=== PATIENT | male | born 1950 | race Caucasian/White ===

== ENCOUNTER → 2017-06-02 | Outpatient (CLI) | payer OTHER, MEDICARE ==
[~2017-06-02] MED LIST: ALBU90OI INH; ALLEGRA ALLERG180 MG PO; ALLO300 PO; ALPR.5 PO; AMLO5 PO; ASPI81CH PO; ASPI81EC; ATOR20 PO; AZIT250 PO; BENA10 PO; BENA20 PO; BYSTOLIC; CLAR500 PO; ENOX40I SC; ESOM20; ESOM20 PO; FEXO60; FLUT.05NI; FOSI10; FURO40 PO; Flonase 0.05% N16 GM; GABA300 PO; GABA800 PO; HYDACE10B PO; HYDCHL25 PO; HYDMOR2 PO; KRILL OIL500 MG PO; LAMO100 PO; METF500 PO; METO25ER; NEBI10 PO; OMEP20ER; OXYACE5T PO; OXYC10ER PO; OXYC20ER PO; OXYC20L PO; OXYC5 PO; PARO10 PO; PARO30; POTA10T PO; PROM25 PO; ROFE25; SITA100T2 PO; TAMS.4ER; TAMS.4ER PO; TOLTERODINE TART4 MG PO; VENL75ER PO; Valium5 MG PO; Zithromax250 MG PO
[2017-06-07 09:16] LABS: Influenza A Negative (NEGATIVE)
[2017-06-07 09:17] LABS: Influenza B Negative (NEGATIVE)
== END ==
LOC: LAB SHORT 10:09
PROVIDERS: Emergency Medicine
DX: R05 Cough (principal)
CPT/HCPCS: 87804

== ENCOUNTER 2017-10-04 23:07 | Emergency (ER) | payer OTHER, MEDICARE ==
[~2017-10-04] VITALS: Ht 180.3 cm; Wt 138.8 kg
== END 2017-10-05 00:35 | disposition home or self-care (01) ==
LOC: ER 23:07
DX: G89.18 Other acute postprocedural pain (principal); M25.562 Pain in left knee; I10 Essential (primary) hypertension; Z87.891 Personal history of nicotine dependence
CPT/HCPCS: 96372; 99284; J1170; J1885

== ENCOUNTER 2019-04-29 09:59 | Day surgery (SDC) | payer OTHER, MEDICARE ==
[~2019-04-29] VITALS: Ht 180.3 cm; Wt 134.0 kg
[~2019-04-29 09:59] MED LIST changes: +JARDIANCE10 MG PO
--- NOTE | 2019-04-29 12:35 | NUR ---
Ambulatory in Day Surgery History, Chart, Medications and Allergies reviewed before start of procedure.Patient confirms NPO status and agrees with scheduled surgery. Patient states colon prep results clear. Patient States Post-Procedure ride home has been arranged WITH .
--- NOTE | 2019-04-29 13:30 | NUR ---
04/29/[address] HERE TO PROVIDE ANESTHESIA CARE, PLEASE SEE DETAILED RECORD. History, Chart, Medications and Allergies reviewed before start of procedure. PATIENT CONFIRMS NPO STATUS AND AGREES WITH SCHEDULED PROCEDURE. MONITOR INTACT WITH CONTINUOUS PULSE OXIMETRY AND INTERMITTENT BP. O2 VIA N/C INTACT THROUGHOUT SEDATION/PROCEDURE, AND NON-REBREATHER AT [address] ANTUNEZ.
== END 2019-04-29 14:35 | disposition home or self-care (01) ==
LOC: ORSCMMR 09:59 → ORD 12:00 → ORSCMMR 12:00
PROVIDERS: Surgery
PROC: 0DJD8ZZ Inspection of Lower Intestinal Tract, Via Natural or Artificial Opening Endoscopic (ICD-10-PCS; principal; 2019-04-29 12:00)
DX: Z12.11 Encounter for screening for malignant neoplasm of colon (principal); Z86.010 Personal history of colon polyps; G47.33 Obstructive sleep apnea (adult) (pediatric); K57.30 Diverticulosis of large intestine without perforation or abscess without bleeding; I10 Essential (primary) hypertension; Z87.891 Personal history of nicotine dependence; E11.40 Type 2 diabetes mellitus with diabetic neuropathy, unspecified; Z79.84 Long term (current) use of oral hypoglycemic drugs; Z79.82 Long term (current) use of aspirin; Z79.899 Other long term (current) drug therapy; E66.01 Morbid (severe) obesity due to excess calories; Z68.41 Body mass index [BMI] 40.0-44.9, adult; E78.5 Hyperlipidemia, unspecified
CPT/HCPCS: 82947; J2704; J7120

== ENCOUNTER 2020-04-19 00:31 | Day surgery (SDC) | payer OTHER, MEDICARE | END 2020-04-19 23:52 | disposition home or self-care (01) | LOC: WOUND 00:31 | DX: E11.621 Type 2 diabetes mellitus with foot ulcer (principal); E11.40 Type 2 diabetes mellitus with diabetic neuropathy, unspecified; E78.5 Hyperlipidemia, unspecified; L97.522 Non-pressure chronic ulcer of other part of left foot with fat layer exposed; Z88.2 Allergy status to sulfonamides; Z88.8 Allergy status to other drugs, medicaments and biological substances; Z88.5 Allergy status to narcotic agent; Z87.891 Personal history of nicotine dependence; Z79.84 Long term (current) use of oral hypoglycemic drugs | CPT/HCPCS: G0463 ==

== ENCOUNTER 2020-05-04 00:29 | Day surgery (SDC) | payer OTHER | END 2020-05-04 22:52 | disposition home or self-care (01) | LOC: WOUND 00:29 | DX: E11.621 Type 2 diabetes mellitus with foot ulcer (principal); L97.522 Non-pressure chronic ulcer of other part of left foot with fat layer exposed; L97.502 Non-pressure chronic ulcer of other part of unspecified foot with fat layer exposed; E11.52 Type 2 diabetes mellitus with diabetic peripheral angiopathy with gangrene; I96 Gangrene, not elsewhere classified; L84 Corns and callosities; E11.40 Type 2 diabetes mellitus with diabetic neuropathy, unspecified; I10 Essential (primary) hypertension; G47.30 Sleep apnea, unspecified; J45.909 Unspecified asthma, uncomplicated; M19.90 Unspecified osteoarthritis, unspecified site; M10.9 Gout, unspecified; Z88.2 Allergy status to sulfonamides; Z88.5 Allergy status to narcotic agent; Z79.84 Long term (current) use of oral hypoglycemic drugs; Z79.82 Long term (current) use of aspirin; Z79.899 Other long term (current) drug therapy ==

== ENCOUNTER 2020-05-11 00:41 | Day surgery (SDC) | payer OTHER ==
[~2020-05-11 00:41] MED LIST changes: -ALLO300 PO; -AMLO5 PO; -BENA20 PO; -Flonase 0.05% N16 GM; -HYDCHL25 PO; -METF500 PO; -NEBI10 PO; -POTA10T PO; -VENL75ER PO
[2020-07-09] MEDS ORDERED: ALLO300 PO (16:24)
[2020-07-09] MEDS ORDERED: NEBI10 PO (16:25)
[2020-07-09] MEDS ORDERED: METF500C PO (16:25)
[2020-07-09] MEDS ORDERED: Ventolin/Prove6.7 GM INH (16:26)
[2020-07-09] MEDS ORDERED: Venlafaxine HC150 MG PO (16:27)
[2020-07-09] MEDS ORDERED: TAMS.4ER PO (16:27)
[2020-07-09] MEDS ORDERED: POTA10T PO (16:27)
[2020-07-09] MEDS ORDERED: FLUT.05NI (16:28)
[2020-07-09] MEDS ORDERED: SITA100T2 PO (16:28)
[2020-07-09] MEDS ORDERED: AMLO5 PO (16:29)
[2020-07-09] MEDS ORDERED: OXYB5 PO (16:30)
[2020-07-09] MEDS ORDERED: ATOR20 PO (16:30)
[2020-07-09] MEDS ORDERED: BENA20 PO (16:30)
[2020-07-09] MEDS ORDERED: GABAPENTIN600 MG PO (16:31)
[2020-07-09] MEDS ORDERED: Aspir 8181 MG PO (16:32)
[2020-07-11] MEDS ORDERED: CEFD300 PO (13:56)
[2020-07-11] MEDS ORDERED: METR500 PO (13:57)
== END 2020-05-11 22:51 | disposition home or self-care (01) ==
LOC: WOUND 00:41
DX: E11.621 Type 2 diabetes mellitus with foot ulcer (principal); L97.519 Non-pressure chronic ulcer of other part of right foot with unspecified severity; L97.522 Non-pressure chronic ulcer of other part of left foot with fat layer exposed; L84 Corns and callosities; E11.40 Type 2 diabetes mellitus with diabetic neuropathy, unspecified; I10 Essential (primary) hypertension; J45.909 Unspecified asthma, uncomplicated; I20.9 Angina pectoris, unspecified; G47.30 Sleep apnea, unspecified; M19.90 Unspecified osteoarthritis, unspecified site; M10.9 Gout, unspecified; Z88.2 Allergy status to sulfonamides; Z88.8 Allergy status to other drugs, medicaments and biological substances; R93.6 Abnormal findings on diagnostic imaging of limbs
CPT/HCPCS: 93922; A9270; G0463

== ENCOUNTER 2020-05-19 00:42 | Day surgery (SDC) | payer OTHER ==
[2020-07-09] MEDS ORDERED: ALLO300 PO (16:24)
[2020-07-09] MEDS ORDERED: METF500C PO (16:25)
[2020-07-09] MEDS ORDERED: NEBI10 PO (16:25)
[2020-07-09] MEDS ORDERED: Ventolin/Prove6.7 GM INH (16:26)
[2020-07-09] MEDS ORDERED: POTA10T PO (16:27)
[2020-07-09] MEDS ORDERED: TAMS.4ER PO (16:27)
[2020-07-09] MEDS ORDERED: Venlafaxine HC150 MG PO (16:27)
[2020-07-09] MEDS ORDERED: SITA100T2 PO (16:28)
[2020-07-09] MEDS ORDERED: FLUT.05NI (16:28)
[2020-07-09] MEDS ORDERED: AMLO5 PO (16:29)
[2020-07-09] MEDS ORDERED: OXYB5 PO (16:30)
[2020-07-09] MEDS ORDERED: ATOR20 PO (16:30)
[2020-07-09] MEDS ORDERED: BENA20 PO (16:30)
[2020-07-09] MEDS ORDERED: GABAPENTIN600 MG PO (16:31)
[2020-07-09] MEDS ORDERED: Aspir 8181 MG PO (16:32)
[2020-07-11] MEDS ORDERED: CEFD300 PO (13:56)
[2020-07-11] MEDS ORDERED: METR500 PO (13:57)
== END 2020-05-19 23:13 | disposition home or self-care (01) ==
LOC: WOUND 00:42
DX: E11.621 Type 2 diabetes mellitus with foot ulcer (principal); L97.522 Non-pressure chronic ulcer of other part of left foot with fat layer exposed; E11.52 Type 2 diabetes mellitus with diabetic peripheral angiopathy with gangrene; I96 Gangrene, not elsewhere classified; E11.42 Type 2 diabetes mellitus with diabetic polyneuropathy; I10 Essential (primary) hypertension; J45.909 Unspecified asthma, uncomplicated; G47.30 Sleep apnea, unspecified; M19.90 Unspecified osteoarthritis, unspecified site; M10.9 Gout, unspecified; Z88.2 Allergy status to sulfonamides; Z88.5 Allergy status to narcotic agent; Z79.84 Long term (current) use of oral hypoglycemic drugs; Z79.51 Long term (current) use of inhaled steroids; Z79.82 Long term (current) use of aspirin; Z79.899 Other long term (current) drug therapy
CPT/HCPCS: A9270; G0463

== ENCOUNTER 2020-05-26 00:14 | Day surgery (SDC) | payer OTHER ==
[2020-07-09] MEDS ORDERED: ALLO300 PO (16:24)
[2020-07-09] MEDS ORDERED: METF500C PO (16:25)
[2020-07-09] MEDS ORDERED: NEBI10 PO (16:25)
[2020-07-09] MEDS ORDERED: Ventolin/Prove6.7 GM INH (16:26)
[2020-07-09] MEDS ORDERED: POTA10T PO (16:27)
[2020-07-09] MEDS ORDERED: Venlafaxine HC150 MG PO (16:27)
[2020-07-09] MEDS ORDERED: TAMS.4ER PO (16:27)
[2020-07-09] MEDS ORDERED: FLUT.05NI (16:28)
[2020-07-09] MEDS ORDERED: SITA100T2 PO (16:28)
[2020-07-09] MEDS ORDERED: AMLO5 PO (16:29)
[2020-07-09] MEDS ORDERED: BENA20 PO (16:30)
[2020-07-09] MEDS ORDERED: ATOR20 PO (16:30)
[2020-07-09] MEDS ORDERED: OXYB5 PO (16:30)
[2020-07-09] MEDS ORDERED: GABAPENTIN600 MG PO (16:31)
[2020-07-09] MEDS ORDERED: Aspir 8181 MG PO (16:32)
[2020-07-11] MEDS ORDERED: CEFD300 PO (13:56)
[2020-07-11] MEDS ORDERED: METR500 PO (13:57)
== END 2020-05-26 22:39 | disposition home or self-care (01) ==
LOC: WOUND 00:14
DX: E11.621 Type 2 diabetes mellitus with foot ulcer (principal); L97.522 Non-pressure chronic ulcer of other part of left foot with fat layer exposed
CPT/HCPCS: A9270

== ENCOUNTER 2020-06-02 00:14 | Day surgery (SDC) | payer OTHER ==
[2020-07-09] MEDS ORDERED: ALLO300 PO (16:24)
[2020-07-09] MEDS ORDERED: METF500C PO (16:25)
[2020-07-09] MEDS ORDERED: NEBI10 PO (16:25)
[2020-07-09] MEDS ORDERED: Ventolin/Prove6.7 GM INH (16:26)
[2020-07-09] MEDS ORDERED: POTA10T PO (16:27)
[2020-07-09] MEDS ORDERED: Venlafaxine HC150 MG PO (16:27)
[2020-07-09] MEDS ORDERED: TAMS.4ER PO (16:27)
[2020-07-09] MEDS ORDERED: SITA100T2 PO (16:28)
[2020-07-09] MEDS ORDERED: FLUT.05NI (16:28)
[2020-07-09] MEDS ORDERED: AMLO5 PO (16:29)
[2020-07-09] MEDS ORDERED: OXYB5 PO (16:30)
[2020-07-09] MEDS ORDERED: ATOR20 PO (16:30)
[2020-07-09] MEDS ORDERED: BENA20 PO (16:30)
[2020-07-09] MEDS ORDERED: GABAPENTIN600 MG PO (16:31)
[2020-07-09] MEDS ORDERED: Aspir 8181 MG PO (16:32)
[2020-07-11] MEDS ORDERED: CEFD300 PO (13:56)
[2020-07-11] MEDS ORDERED: METR500 PO (13:57)
== END 2020-06-02 23:45 | disposition home or self-care (01) ==
LOC: WOUND 00:14
DX: E11.621 Type 2 diabetes mellitus with foot ulcer (principal); L97.522 Non-pressure chronic ulcer of other part of left foot with fat layer exposed; L84 Corns and callosities; E11.40 Type 2 diabetes mellitus with diabetic neuropathy, unspecified; I73.9 Peripheral vascular disease, unspecified; I10 Essential (primary) hypertension; J45.909 Unspecified asthma, uncomplicated; M10.9 Gout, unspecified; M19.90 Unspecified osteoarthritis, unspecified site; G47.30 Sleep apnea, unspecified
CPT/HCPCS: A9270

== ENCOUNTER 2020-06-09 00:10 | Day surgery (SDC) | payer OTHER ==
[2020-07-09] MEDS ORDERED: ALLO300 PO (16:24)
[2020-07-09] MEDS ORDERED: NEBI10 PO (16:25)
[2020-07-09] MEDS ORDERED: METF500C PO (16:25)
[2020-07-09] MEDS ORDERED: Ventolin/Prove6.7 GM INH (16:26)
[2020-07-09] MEDS ORDERED: POTA10T PO (16:27)
[2020-07-09] MEDS ORDERED: TAMS.4ER PO (16:27)
[2020-07-09] MEDS ORDERED: Venlafaxine HC150 MG PO (16:27)
[2020-07-09] MEDS ORDERED: SITA100T2 PO (16:28)
[2020-07-09] MEDS ORDERED: FLUT.05NI (16:28)
[2020-07-09] MEDS ORDERED: AMLO5 PO (16:29)
[2020-07-09] MEDS ORDERED: BENA20 PO (16:30)
[2020-07-09] MEDS ORDERED: OXYB5 PO (16:30)
[2020-07-09] MEDS ORDERED: ATOR20 PO (16:30)
[2020-07-09] MEDS ORDERED: GABAPENTIN600 MG PO (16:31)
[2020-07-09] MEDS ORDERED: Aspir 8181 MG PO (16:32)
[2020-07-11] MEDS ORDERED: CEFD300 PO (13:56)
[2020-07-11] MEDS ORDERED: METR500 PO (13:57)
== END 2020-06-09 23:14 | disposition home or self-care (01) ==
LOC: WOUND 00:10
DX: E11.621 Type 2 diabetes mellitus with foot ulcer (principal); L97.522 Non-pressure chronic ulcer of other part of left foot with fat layer exposed; L84 Corns and callosities; E11.51 Type 2 diabetes mellitus with diabetic peripheral angiopathy without gangrene; J45.909 Unspecified asthma, uncomplicated; I10 Essential (primary) hypertension; I20.9 Angina pectoris, unspecified; G47.30 Sleep apnea, unspecified; M10.9 Gout, unspecified; M19.90 Unspecified osteoarthritis, unspecified site
CPT/HCPCS: A9270; G0463

== ENCOUNTER 2020-06-23 00:29 | Day surgery (SDC) | payer OTHER ==
[2020-07-09] MEDS ORDERED: ALLO300 PO (16:24)
[2020-07-09] MEDS ORDERED: NEBI10 PO (16:25)
[2020-07-09] MEDS ORDERED: METF500C PO (16:25)
[2020-07-09] MEDS ORDERED: Ventolin/Prove6.7 GM INH (16:26)
[2020-07-09] MEDS ORDERED: Venlafaxine HC150 MG PO (16:27)
[2020-07-09] MEDS ORDERED: POTA10T PO (16:27)
[2020-07-09] MEDS ORDERED: TAMS.4ER PO (16:27)
[2020-07-09] MEDS ORDERED: SITA100T2 PO (16:28)
[2020-07-09] MEDS ORDERED: FLUT.05NI (16:28)
[2020-07-09] MEDS ORDERED: AMLO5 PO (16:29)
[2020-07-09] MEDS ORDERED: OXYB5 PO (16:30)
[2020-07-09] MEDS ORDERED: ATOR20 PO (16:30)
[2020-07-09] MEDS ORDERED: BENA20 PO (16:30)
[2020-07-09] MEDS ORDERED: GABAPENTIN600 MG PO (16:31)
[2020-07-09] MEDS ORDERED: Aspir 8181 MG PO (16:32)
[2020-07-11] MEDS ORDERED: CEFD300 PO (13:56)
[2020-07-11] MEDS ORDERED: METR500 PO (13:57)
== END 2020-06-23 22:50 | disposition home or self-care (01) ==
LOC: WOUND 00:29
DX: E11.621 Type 2 diabetes mellitus with foot ulcer (principal); L84 Corns and callosities; L97.529 Non-pressure chronic ulcer of other part of left foot with unspecified severity
CPT/HCPCS: A9270

== ENCOUNTER 2020-06-26 17:41 | Emergency (ER) | payer OTHER ==
[~2020-06-26] VITALS: Ht 180.3 cm; Wt 133.8 kg
[2020-06-26] MEDS ORDERED: CEPH500 PO (18:14)
[2020-07-09] MEDS ORDERED: ALLO300 PO (16:24)
[2020-07-09] MEDS ORDERED: METF500C PO (16:25)
[2020-07-09] MEDS ORDERED: NEBI10 PO (16:25)
[2020-07-09] MEDS ORDERED: Ventolin/Prove6.7 GM INH (16:26)
[2020-07-09] MEDS ORDERED: Venlafaxine HC150 MG PO (16:27)
[2020-07-09] MEDS ORDERED: TAMS.4ER PO (16:27)
[2020-07-09] MEDS ORDERED: POTA10T PO (16:27)
[2020-07-09] MEDS ORDERED: FLUT.05NI (16:28)
[2020-07-09] MEDS ORDERED: SITA100T2 PO (16:28)
[2020-07-09] MEDS ORDERED: AMLO5 PO (16:29)
[2020-07-09] MEDS ORDERED: BENA20 PO (16:30)
[2020-07-09] MEDS ORDERED: OXYB5 PO (16:30)
[2020-07-09] MEDS ORDERED: ATOR20 PO (16:30)
[2020-07-09] MEDS ORDERED: GABAPENTIN600 MG PO (16:31)
[2020-07-09] MEDS ORDERED: Aspir 8181 MG PO (16:32)
[2020-07-11] MEDS ORDERED: CEFD300 PO (13:56)
[2020-07-11] MEDS ORDERED: METR500 PO (13:57)
== END 2020-06-26 18:35 | disposition home or self-care (01) ==
LOC: ER 17:41
DX: L03.116 Cellulitis of left lower limb (principal); E11.9 Type 2 diabetes mellitus without complications; I10 Essential (primary) hypertension; Z79.899 Other long term (current) drug therapy; Z79.84 Long term (current) use of oral hypoglycemic drugs; Z79.82 Long term (current) use of aspirin; Z88.2 Allergy status to sulfonamides; Z88.5 Allergy status to narcotic agent; Z87.891 Personal history of nicotine dependence
CPT/HCPCS: 99282; A9270

== ENCOUNTER → 2020-07-07 | Outpatient (CLI) | payer OTHER ==
[~2020-07-07] MED LIST changes: +ALLO300 PO; +AMLO5 PO; +Aspir 8181 MG PO; +BENA20 PO; +CEFD300 PO; +CEPH500 PO; +GABAPENTIN600 MG PO; +HYDCHL25 PO; +METF500C PO; +METR500 PO; +NEBI10 PO; +OXYB5 PO; +POTA10T PO; +Venlafaxine HC150 MG PO; +Ventolin/Prove6.7 GM INH
[2020-07-07 15:09] LABS: BASOPHILS ABSOLUTE AUTO 0.02 K/mm3 (0.00-0.23); BASOPHILS PERCENT AUTO 0 % (0-2); EOSINOPHILS ABSOLUTE AUTO 0.32 K/mm3 (0.00-0.68); EOSINOPHILS PERCENT AUTO 2 % (0-6); Hematocrit 49.9 % (37.0-53.0); Hemoglobin 17.5 g/dL (13.5-17.5); IMMATURE GRAN ABSOLUTE AUTO 0.04 K/mm3 (0.00-0.10); IMMATURE GRAN PERCENT AUTO 0 % (0-1); LYMPHOCYTES ABSOLUTE AUTO 1.48 K/mm3 (0.84-5.20); LYMPHOCYTES PERCENT AUTO 11 % (21-46); MONOCYTES ABSOLUTE AUTO 0.93 K/mm3 (0.16-1.47); MONOCYTES PERCENT AUTO 7 % (4-13); Mean Corpuscular HGB 28.7 pg (26.0-34.0); Mean Corpuscular HGB Conc 35.1 g/dL (31.5-36.5); Mean Corpuscular Volume 82 fL (80-100); Mean Platelet Volume 10.4 fL (9.1-12.4); NEUTROPHILS ABSOLUTE AUTO 10.31 K/mm3 (1.96-9.15); NEUTROPHILS PERCENT AUTO 79 % (41-73); Platelet Count 257 K/mm3 (150-400); RDW Coefficient Variation 14.1 % (11.7-14.2); RDW Standard Deviation 40.5 fL (35.1-46.3)
[2020-07-07 15:19] LABS: Albumin, Blood 4.1 g/dL (3.4-5.0); Albumin/Globulin Ratio 0.9 (0.8-1.8); Bilirubin, Total 0.6 mg/dL (0.1-1.0); Bun/Creatinine Ratio 23.9 (12.0-20.0); Calcium, Blood 9.2 mg/dL (8.5-10.1); Creatinine, Blood 1.59 mg/dL (0.60-1.20); Globulin, Blood 4.5 g/dL (2.2-4.0); Potassium, Blood 4.4 mmol/L (3.5-5.5); Total Protein, Blood 8.6 g/dL (6.4-8.2)
[2020-07-10 13:10] LABS: CRYPTOSPORIDIUM EIA Negative (Negative)
== END | disposition home or self-care (01) ==
LOC: LAB SHORT 15:05 → LAB 15:05
PROVIDERS: Chiropractor; Family Medicine
DX: E86.0 Dehydration (principal); N17.9 Acute kidney failure, unspecified; R19.7 Diarrhea, unspecified
CPT/HCPCS: 80053; 85025; 87015; 87045; 87046; 87328; 87329; 87899

== ENCOUNTER → 2020-07-08 | Outpatient (CLI) | payer OTHER ==
[2020-07-08 08:59] LABS: BASOPHILS ABSOLUTE AUTO 0.02 K/mm3 (0.00-0.23); BASOPHILS PERCENT AUTO 0 % (0-2); EOSINOPHILS ABSOLUTE AUTO 0.34 K/mm3 (0.00-0.68); EOSINOPHILS PERCENT AUTO 4 % (0-6); Hematocrit 51.5 % (37.0-53.0); Hemoglobin 18.2 g/dL (13.5-17.5); IMMATURE GRAN ABSOLUTE AUTO 0.02 K/mm3 (0.00-0.10); IMMATURE GRAN PERCENT AUTO 0 % (0-1); LYMPHOCYTES ABSOLUTE AUTO 2.08 K/mm3 (0.84-5.20); LYMPHOCYTES PERCENT AUTO 22 % (21-46); MONOCYTES ABSOLUTE AUTO 1.11 K/mm3 (0.16-1.47); MONOCYTES PERCENT AUTO 12 % (4-13); Mean Corpuscular HGB Conc 35.3 g/dL (31.5-36.5); Mean Corpuscular Volume 82 fL (80-100); Mean Platelet Volume 10.4 fL (9.1-12.4); NEUTROPHILS ABSOLUTE AUTO 6.01 K/mm3 (1.96-9.15); NEUTROPHILS PERCENT AUTO 63 % (41-73); Platelet Count 303 K/mm3 (150-400); RDW Coefficient Variation 14.6 % (11.7-14.2); RDW Standard Deviation 41.4 fL (35.1-46.3); Red Blood Cell Count 6.27 M/mm3 (4.30-5.90); White Blood Cell Count 9.58 K/mm3 (4.00-11.30)
[2020-07-08 09:07] LABS: Albumin, Blood 3.9 g/dL (3.4-5.0); Albumin/Globulin Ratio 0.9 (0.8-1.8); Bilirubin, Total 0.5 mg/dL (0.1-1.0); Bun/Creatinine Ratio 23.5 (12.0-20.0); Calcium, Blood 8.9 mg/dL (8.5-10.1); Creatinine, Blood 1.62 mg/dL (0.60-1.20); Globulin, Blood 4.4 g/dL (2.2-4.0); Potassium, Blood 4.1 mmol/L (3.5-5.5); Total Protein, Blood 8.3 g/dL (6.4-8.2)
[2020-07-08 10:35] LABS: Bun/Creatinine Ratio 24.7 (12.0-20.0); Creatinine, Blood 1.46 mg/dL (0.60-1.20); Potassium, Blood 4.1 mmol/L (3.5-5.5)
[2020-07-08 13:09] LABS: C DIFFICILE DNA Duplicate (Negative)
== END | disposition home or self-care (01) ==
LOC: LAB 08:47 → LAB SHORT 08:47
PROVIDERS: General Practice
DX: R11.10 Vomiting, unspecified (principal); R19.7 Diarrhea, unspecified
CPT/HCPCS: 80048; 80053; 82150; 85025

== ENCOUNTER 2020-07-09 11:03 | Inpatient (IN) | payer OTHER ==
[~2020-07-09] VITALS: Ht 180.3 cm; Wt 128.4 kg
[~2020-07-09 11:03] MED LIST changes: -ALLO300 PO; -AMLO5 PO; -Aspir 8181 MG PO; -BENA20 PO; -CEFD300 PO; -GABAPENTIN600 MG PO; -HYDCHL25 PO; -METF500C PO; -METR500 PO; -NEBI10 PO; -OXYB5 PO; -POTA10T PO; -Venlafaxine HC150 MG PO; -Ventolin/Prove6.7 GM INH
[2020-07-09 12:04] LABS: BASOPHILS ABSOLUTE AUTO 0.03 K/mm3 (0.00-0.23); BASOPHILS PERCENT AUTO 0 % (0-2); EOSINOPHILS ABSOLUTE AUTO 0.77 K/mm3 (0.00-0.68); EOSINOPHILS PERCENT AUTO 6 % (0-6); Hematocrit 48.7 % (37.0-53.0); IMMATURE GRAN ABSOLUTE AUTO 0.04 K/mm3 (0.00-0.10); IMMATURE GRAN PERCENT AUTO 0 % (0-1); LYMPHOCYTES ABSOLUTE AUTO 3.16 K/mm3 (0.84-5.20); LYMPHOCYTES PERCENT AUTO 26 % (21-46); MONOCYTES ABSOLUTE AUTO 1.22 K/mm3 (0.16-1.47); MONOCYTES PERCENT AUTO 10 % (4-13); Mean Corpuscular HGB 28.9 pg (26.0-34.0); Mean Corpuscular HGB Conc 34.9 g/dL (31.5-36.5); Mean Corpuscular Volume 83 fL (80-100); Mean Platelet Volume 9.6 fL (9.1-12.4); NEUTROPHILS ABSOLUTE AUTO 7.05 K/mm3 (1.96-9.15); NEUTROPHILS PERCENT AUTO 58 % (41-73); Platelet Count 274 K/mm3 (150-400); RDW Coefficient Variation 14.3 % (11.7-14.2); RDW Standard Deviation 42.8 fL (35.1-46.3); Red Blood Cell Count 5.88 M/mm3 (4.30-5.90); White Blood Cell Count 12.27 K/mm3 (4.00-11.30)
[2020-07-09 12:20] LABS: Albumin, Blood 3.4 g/dL (3.4-5.0); Albumin/Globulin Ratio 0.9 (0.8-1.8); Bilirubin, Total 0.4 mg/dL (0.1-1.0); Bun/Creatinine Ratio 22.9 (12.0-20.0); Calcium, Blood 8.1 mg/dL (8.5-10.1); Creatinine, Blood 1.53 mg/dL (0.60-1.20); Globulin, Blood 3.8 g/dL (2.2-4.0); Potassium, Blood 3.8 mmol/L (3.5-5.5); Total Protein, Blood 7.2 g/dL (6.4-8.2)
[2020-07-09 15:36] LABS: Influenza A, PCR NEGATIVE (NEGATIVE); Influenza B, PCR NEGATIVE (NEGATIVE); Resp Syncytial Virus, PCR NEGATIVE (NEGATIVE); SARS-Cov-2 (COVID-19) PCR, MMC NEGATIVE (NEGATIVE)
[2020-07-09] MEDS ORDERED: ALLO300 PO ×2 (16:24)
[2020-07-09] MEDS ORDERED: METF500C PO ×2 (16:25)
[2020-07-09] MEDS ORDERED: NEBI10 PO ×2 (16:25)
[2020-07-09] MEDS ORDERED: Ventolin/Prove6.7 GM INH ×2 (16:26)
[2020-07-09] MEDS ORDERED: TAMS.4ER PO ×2 (16:27)
[2020-07-09] MEDS ORDERED: POTA10T PO ×2 (16:27)
[2020-07-09] MEDS ORDERED: Venlafaxine HC150 MG PO ×2 (16:27)
[2020-07-09] MEDS ORDERED: SITA100T2 PO ×2 (16:28)
[2020-07-09] MEDS ORDERED: FLUT.05NI ×2 (16:28)
[2020-07-09] MEDS ORDERED: AMLO5 PO ×2 (16:29)
[2020-07-09] MEDS ORDERED: OXYB5 PO ×2 (16:30)
[2020-07-09] MEDS ORDERED: BENA20 PO ×2 (16:30)
[2020-07-09] MEDS ORDERED: ATOR20 PO ×2 (16:30)
[2020-07-09] MEDS ORDERED: GABAPENTIN600 MG PO ×2 (16:31)
[2020-07-09] MEDS ORDERED: Aspir 8181 MG PO ×2 (16:32)
[2020-07-09] MEDS ORDERED: HYDCHL25 PO (16:47)
--- NOTE | 2020-07-09 19:18 | NUR ---
PT ARRIVED AT 183, TUCKED IN, REPORT GIVEN TO NIGHT NURSE
[2020-07-09 21:08] LABS: C DIFFICILE DNA NEGATIVE (Negative)
[2020-07-10 06:22] LABS: BASOPHILS ABSOLUTE AUTO 0.03 K/mm3 (0.00-0.23); BASOPHILS PERCENT AUTO 0 % (0-2); EOSINOPHILS ABSOLUTE AUTO 1.17 K/mm3 (0.00-0.68); EOSINOPHILS PERCENT AUTO 10 % (0-6); Hematocrit 43.6 % (37.0-53.0); Hemoglobin 15.3 g/dL (13.5-17.5); IMMATURE GRAN ABSOLUTE AUTO 0.06 K/mm3 (0.00-0.10); IMMATURE GRAN PERCENT AUTO 1 % (0-1); LYMPHOCYTES PERCENT AUTO 25 % (21-46); MONOCYTES ABSOLUTE AUTO 0.97 K/mm3 (0.16-1.47); MONOCYTES PERCENT AUTO 8 % (4-13); Mean Corpuscular HGB 28.7 pg (26.0-34.0); Mean Corpuscular HGB Conc 35.1 g/dL (31.5-36.5); Mean Corpuscular Volume 82 fL (80-100); Mean Platelet Volume 9.7 fL (9.1-12.4); NEUTROPHILS PERCENT AUTO 56 % (41-73); Platelet Count 210 K/mm3 (150-400); RDW Coefficient Variation 14.2 % (11.7-14.2); RDW Standard Deviation 41.7 fL (35.1-46.3); Red Blood Cell Count 5.34 M/mm3 (4.30-5.90); White Blood Cell Count 11.73 K/mm3 (4.00-11.30)
--- NOTE | 2020-07-10 07:01 | NUR ---
SHIFT SUMMARY PT IS A 69 Y/O MALE, ADMITTED FOR DEHYDRATION R/T DIARRHEA. HE IS A&O X 4, SBA TO THE BATHROOM. PT DENIED ANY C/O PAIN, NAUSEA OR SOB, THOUGH IS STILL REPORTING "WATERY DIARRHEA". PT STATES HE IS FEELING "MUCH BETTER THAN I WAS" THIS AM. RECEIVING NS + 20 MEQ K+ @ 150 ML/HR, PLUS 1L BOLUS OF NS GIVEN AT HS. VITAL SIGNS REMAINED STABLE. TELE SHOWED NSR IN THE 70S. PT ON BIPAP AT [facility]. NO ACUTE CHANGES IN PT CONDITION NOTED DURING THE NIGHT. WILL CONTINUE TO MONITOR AND TREAT PER EMAR UNTIL HAND OFF TO DAY SHIFT RN.
[2020-07-10 07:15] LABS: Alanine Aminotransfer (ALT/SGP 24 U/L (12-78); Albumin, Blood 3.1 g/dL (3.4-5.0); Alk Phos 66 U/L (50-136); Anion Gap 9 mmol/L (6-16); Aspartate Aminotrans (AST/SGOT 10 U/L (12-37); Bilirubin, Total 0.5 mg/dL (0.1-1.0); Blood Urea Nitrogen 21 mg/dL (8-24); Bun/Creatinine Ratio 19.1 (12.0-20.0); CO2, Blood 19 mmol/L (21-32); Calcium, Blood 7.9 mg/dL (8.5-10.1); Chloride, Blood 113 mmol/L (98-108); Globulin, Blood 3.1 g/dL (2.2-4.0); Glomerular Filtration Rate >60 (60-); Glucose, Blood 148 mg/dL (70-99); Magnesium, Blood 1.3 mg/dL (1.6-2.4); Potassium, Blood 3.6 mmol/L (3.5-5.5); Sodium, Blood 141 mmol/L (136-145); Total Protein, Blood 6.2 g/dL (6.4-8.2)
--- NOTE | 2020-07-10 11:18 | NUR ---
PER DR WILKINSON, DC TELE AND CONTINUOUS PULSE OX DESPITE BEING ON CPAP HS PER PT REQUESST
--- NOTE | 2020-07-10 19:21 | NUR ---
SHIFT SUMMARY BENGT DENIED PAIN OR NAUSEA THIS SHIFT. ADVANCED TO FULL LIQUID AT [facility] AND DID WELL AND HAD ADA DIET FOR DINNER, EAGER TO GO HOME. HAD 3 BM THIS SHIFT, STATES THEY ARE GETTING MORE FORMED AND SLOWING DOWN SIGNIFICANTLY. VISITED. PT INDEP IN ROOM. DRESSED L GREAT TOE ULCER AFTER PT'S SHOWER. TELE AND CONT PULSE OX DC'D. MIVF DC'D, PT SL IV. CALL LIGHT IN REACH, REPORT GIVEN TO NIGHT NURSE
[2020-07-11 05:38] LABS: BASOPHILS ABSOLUTE AUTO 0.03 K/mm3 (0.00-0.23); BASOPHILS PERCENT AUTO 0 % (0-2); EOSINOPHILS PERCENT AUTO 13 % (0-6); Hematocrit 37.8 % (37.0-53.0); Hemoglobin 13.7 g/dL (13.5-17.5); IMMATURE GRAN ABSOLUTE AUTO 0.05 K/mm3 (0.00-0.10); IMMATURE GRAN PERCENT AUTO 1 % (0-1); LYMPHOCYTES ABSOLUTE AUTO 2.35 K/mm3 (0.84-5.20); LYMPHOCYTES PERCENT AUTO 29 % (21-46); MONOCYTES ABSOLUTE AUTO 0.63 K/mm3 (0.16-1.47); MONOCYTES PERCENT AUTO 8 % (4-13); Mean Corpuscular HGB Conc 36.2 g/dL (31.5-36.5); Mean Corpuscular Volume 80 fL (80-100); Mean Platelet Volume 9.4 fL (9.1-12.4); NEUTROPHILS ABSOLUTE AUTO 4.08 K/mm3 (1.96-9.15); NEUTROPHILS PERCENT AUTO 50 % (41-73); Platelet Count 158 K/mm3 (150-400); RDW Coefficient Variation 13.9 % (11.7-14.2); RDW Standard Deviation 40.2 fL (35.1-46.3); Red Blood Cell Count 4.72 M/mm3 (4.30-5.90); White Blood Cell Count 8.24 K/mm3 (4.00-11.30)
[2020-07-11 06:02] LABS: Alanine Aminotransfer (ALT/SGP 25 U/L (12-78); Albumin/Globulin Ratio 0.9 (0.8-1.8); Alk Phos 62 U/L (50-136); Anion Gap 8 mmol/L (6-16); Aspartate Aminotrans (AST/SGOT 17 U/L (12-37); Bilirubin, Total 0.5 mg/dL (0.1-1.0); Blood Urea Nitrogen 12 mg/dL (8-24); Bun/Creatinine Ratio 13.3 (12.0-20.0); CO2, Blood 21 mmol/L (21-32); Calcium, Blood 8.1 mg/dL (8.5-10.1); Chloride, Blood 112 mmol/L (98-108); Globulin, Blood 3.2 g/dL (2.2-4.0); Glomerular Filtration Rate >60 (60-); Glucose, Blood 153 mg/dL (70-99); Potassium, Blood 3.2 mmol/L (3.5-5.5); Sodium, Blood 141 mmol/L (136-145); Total Protein, Blood 6.2 g/dL (6.4-8.2)
--- NOTE | 2020-07-11 06:47 | NUR ---
SHIFT SUMMARY PT IS A 69 Y/O MALE, ADMITTED FOR DEHYDRATION R/T DIARRHEA. HE IS A&O X 4, INDEPENDENT IN THE ROOM. PT REPORTS THAT HE IS STILL HAVING EPISODES OF DIARRHEA, BUT THAT THEY ARE SLOWING DOWN, AND HE IS "FEELING 100% BETTER THAN I WAS". HE DID REPORT NECK PAIN AT HS, AND REQUESTED IBUPROFEN RATHER THAN TYLENOL "IT WORKS BETTER FOR ME". THE HOSPITALIST DR VARGAS NOTIFIED, AND IBUPROFEN ORDERED AND ADMINISTERED. NO C/O NAUSEA OR SOB. VITAL SIGNS STABLE. PT ON HIS HOME BIPAP WHILE SLEEPING. NO ACUTE CHANGES IN PT CONDITION NOTED DURING THE NIGHT. WILL CONTINUE TO MONITOR AND TREAT PER EMAR UNTIL HAND OFF TO DAY SHIFT RN.
[2020-07-11] MEDS ORDERED: CEFD300 PO ×2 (13:56)
[2020-07-11] MEDS ORDERED: METR500 PO ×2 (13:57)
== END 2020-07-11 14:27 | disposition home or self-care (01) | DRG 392 ==
LOC: ER 11:03 → MEDS 16:20
PROVIDERS: Emergency Medicine; Physician Assistant; ADMIT Internal Medicine
DX: K52.9 Noninfective gastroenteritis and colitis, unspecified (principal); N17.9 Acute kidney failure, unspecified; E87.2 Acidosis; Z20.822 Contact with and (suspected) exposure to COVID-19; I10 Essential (primary) hypertension; E66.9 Obesity, unspecified; K57.30 Diverticulosis of large intestine without perforation or abscess without bleeding; E86.0 Dehydration; E11.621 Type 2 diabetes mellitus with foot ulcer; L97.529 Non-pressure chronic ulcer of other part of left foot with unspecified severity; E78.5 Hyperlipidemia, unspecified; K76.0 Fatty (change of) liver, not elsewhere classified; E87.6 Hypokalemia; G47.33 Obstructive sleep apnea (adult) (pediatric); Z68.39 Body mass index [BMI] 39.0-39.9, adult; Z99.89 Dependence on other enabling machines and devices; Z79.2 Long term (current) use of antibiotics; Z87.891 Personal history of nicotine dependence; Z79.82 Long term (current) use of aspirin; Z79.84 Long term (current) use of oral hypoglycemic drugs; Z79.899 Other long term (current) drug therapy
CPT/HCPCS: 0241U; 36415; 74177; 80053; 82947; 83690; 83735; 85025; 87493; 94660; 94760; 94762; 96361; 96374; 99285-25; A9270; J0696; J1644; J2405; J3475; J3480; J7030; J7120; Q9967

== ENCOUNTER → 2020-07-09 | Outpatient (CLI) | payer OTHER ==
[2020-07-09 09:55] LABS: BASOPHILS ABSOLUTE AUTO 0.02 K/mm3 (0.00-0.23); BASOPHILS PERCENT AUTO 0 % (0-2); EOSINOPHILS ABSOLUTE AUTO 0.82 K/mm3 (0.00-0.68); EOSINOPHILS PERCENT AUTO 7 % (0-6); Hematocrit 47.8 % (37.0-53.0); Hemoglobin 16.7 g/dL (13.5-17.5); IMMATURE GRAN ABSOLUTE AUTO 0.05 K/mm3 (0.00-0.10); IMMATURE GRAN PERCENT AUTO 0 % (0-1); LYMPHOCYTES ABSOLUTE AUTO 2.81 K/mm3 (0.84-5.20); LYMPHOCYTES PERCENT AUTO 25 % (21-46); MONOCYTES ABSOLUTE AUTO 1.23 K/mm3 (0.16-1.47); MONOCYTES PERCENT AUTO 11 % (4-13); Mean Corpuscular HGB Conc 34.9 g/dL (31.5-36.5); Mean Corpuscular Volume 83 fL (80-100); NEUTROPHILS ABSOLUTE AUTO 6.47 K/mm3 (1.96-9.15); NEUTROPHILS PERCENT AUTO 57 % (41-73); Platelet Count 257 K/mm3 (150-400); RDW Coefficient Variation 14.6 % (11.7-14.2); RDW Standard Deviation 43.6 fL (35.1-46.3); Red Blood Cell Count 5.76 M/mm3 (4.30-5.90)
[2020-07-09 10:10] LABS: Albumin, Blood 3.3 g/dL (3.4-5.0); Albumin/Globulin Ratio 0.8 (0.8-1.8); Bilirubin, Total 0.4 mg/dL (0.1-1.0); Bun/Creatinine Ratio 21.6 (12.0-20.0); Calcium, Blood 7.9 mg/dL (8.5-10.1); Creatinine, Blood 1.76 mg/dL (0.60-1.20); Globulin, Blood 3.9 g/dL (2.2-4.0); Potassium, Blood 3.9 mmol/L (3.5-5.5); Total Protein, Blood 7.2 g/dL (6.4-8.2)
== END | disposition home or self-care (01) ==
LOC: LAB SHORT 09:50 → PLD 09:50
PROVIDERS: General Practice
DX: E13.65 Other specified diabetes mellitus with hyperglycemia (principal); E13.621 Other specified diabetes mellitus with foot ulcer; L97.509 Non-pressure chronic ulcer of other part of unspecified foot with unspecified severity
CPT/HCPCS: 80053; 85025; 87070; 87075; 87077; 87186; 87205

== ENCOUNTER 2020-07-14 00:44 | Day surgery (SDC) | payer OTHER ==
[~2020-07-14 00:44] MED LIST changes: +ALLO300 PO; +AMLO5 PO; +Aspir 8181 MG PO; +BENA20 PO; +CEFD300 PO; +GABAPENTIN600 MG PO; +HYDCHL25 PO; +METF500C PO; +METR500 PO; +NEBI10 PO; +OXYB5 PO; +POTA10T PO; +Venlafaxine HC150 MG PO; +Ventolin/Prove6.7 GM INH
== END 2020-07-14 22:46 | disposition home or self-care (01) ==
LOC: WOUND 00:44
DX: E11.621 Type 2 diabetes mellitus with foot ulcer (principal); L97.522 Non-pressure chronic ulcer of other part of left foot with fat layer exposed; L84 Corns and callosities; E11.40 Type 2 diabetes mellitus with diabetic neuropathy, unspecified; E11.51 Type 2 diabetes mellitus with diabetic peripheral angiopathy without gangrene; I10 Essential (primary) hypertension; J45.909 Unspecified asthma, uncomplicated; G47.30 Sleep apnea, unspecified; M19.90 Unspecified osteoarthritis, unspecified site; M10.9 Gout, unspecified; E78.5 Hyperlipidemia, unspecified; K21.9 Gastro-esophageal reflux disease without esophagitis; Z79.84 Long term (current) use of oral hypoglycemic drugs; Z87.891 Personal history of nicotine dependence; Z96.659 Presence of unspecified artificial knee joint; Z98.1 Arthrodesis status
CPT/HCPCS: A9270

== ENCOUNTER 2020-07-21 00:18 | Day surgery (SDC) | payer OTHER | END 2020-07-21 22:42 | disposition home or self-care (01) | LOC: WOUND 00:18 | DX: E11.621 Type 2 diabetes mellitus with foot ulcer (principal); L97.522 Non-pressure chronic ulcer of other part of left foot with fat layer exposed; L84 Corns and callosities; E11.40 Type 2 diabetes mellitus with diabetic neuropathy, unspecified; I10 Essential (primary) hypertension; J45.909 Unspecified asthma, uncomplicated; G47.30 Sleep apnea, unspecified; M19.90 Unspecified osteoarthritis, unspecified site; E78.5 Hyperlipidemia, unspecified; N40.0 Benign prostatic hyperplasia without lower urinary tract symptoms | CPT/HCPCS: 36415; 80053; 80061; 83036; 84153; 84154; 85025; A9270 ==

== ENCOUNTER 2020-08-04 00:18 | Day surgery (SDC) | payer OTHER | END 2020-08-04 22:47 | disposition home or self-care (01) | LOC: WOUND 00:18 | DX: E11.621 Type 2 diabetes mellitus with foot ulcer (principal); L97.522 Non-pressure chronic ulcer of other part of left foot with fat layer exposed; L84 Corns and callosities; I10 Essential (primary) hypertension; J45.909 Unspecified asthma, uncomplicated; G47.30 Sleep apnea, unspecified | CPT/HCPCS: A9270 ==

== ENCOUNTER 2020-08-18 00:23 | Day surgery (SDC) | payer OTHER | END 2020-08-18 22:49 | disposition home or self-care (01) | LOC: WOUND 00:23 | DX: E11.621 Type 2 diabetes mellitus with foot ulcer (principal); L97.522 Non-pressure chronic ulcer of other part of left foot with fat layer exposed; L84 Corns and callosities | CPT/HCPCS: 87070; 87075; 87077; 87186; 87205; A9270; G0463 ==

== ENCOUNTER 2020-09-03 02:07 | Day surgery (SDC) | payer OTHER | END 2020-09-03 23:12 | disposition home or self-care (01) | LOC: WOUND 02:07 | DX: E11.621 Type 2 diabetes mellitus with foot ulcer (principal); L97.522 Non-pressure chronic ulcer of other part of left foot with fat layer exposed; L03.031 Cellulitis of right toe; L84 Corns and callosities | CPT/HCPCS: A9270 ==

== ENCOUNTER 2020-09-09 00:31 | Day surgery (SDC) | payer OTHER | END 2020-09-09 22:53 | disposition home or self-care (01) | LOC: WOUND 00:31 | DX: E11.621 Type 2 diabetes mellitus with foot ulcer (principal); L97.522 Non-pressure chronic ulcer of other part of left foot with fat layer exposed; L03.031 Cellulitis of right toe; L84 Corns and callosities; E11.40 Type 2 diabetes mellitus with diabetic neuropathy, unspecified; E11.51 Type 2 diabetes mellitus with diabetic peripheral angiopathy without gangrene; I10 Essential (primary) hypertension; J45.909 Unspecified asthma, uncomplicated | CPT/HCPCS: A9270 ==

== ENCOUNTER 2020-09-15 16:27 | Day surgery (SDC) | payer OTHER | END 2020-09-15 22:52 | disposition home or self-care (01) | LOC: WOUND 16:27 | DX: E11.621 Type 2 diabetes mellitus with foot ulcer (principal); L97.522 Non-pressure chronic ulcer of other part of left foot with fat layer exposed; L03.031 Cellulitis of right toe; L84 Corns and callosities; I10 Essential (primary) hypertension; J45.909 Unspecified asthma, uncomplicated; E11.40 Type 2 diabetes mellitus with diabetic neuropathy, unspecified | CPT/HCPCS: A9270; G0463 ==

== ENCOUNTER 2020-10-11 10:55 | Day surgery (SDC) | payer OTHER ==
[~2020-10-11] VITALS: Ht 180.3 cm; Wt 137.4 kg
--- NOTE | 2020-10-11 13:00 | NUR ---
10/11/20 1300 Margarita Altman EPI 0.15MG MIXED INTO 30ML BUPIVACAINE 0.5% TO MAKE BUPIVACAINE 0.5% W/EPI 1:200,000
== END 2020-10-11 14:25 | disposition home or self-care (01) ==
LOC: ORSCSDS 10:55
PROVIDERS: Podiatrist Foot & Ankle Surgery
PROC: 0L8P0ZZ Division of Left Lower Leg Tendon, Open Approach (ICD-10-PCS; principal; 2020-10-11 12:30)
PROC: 0QBR0ZZ Excision of Left Toe Phalanx, Open Approach (ICD-10-PCS; principal; 2020-10-11 12:30)
DX: E11.40 Type 2 diabetes mellitus with diabetic neuropathy, unspecified (principal); E11.621 Type 2 diabetes mellitus with foot ulcer; L97.521 Non-pressure chronic ulcer of other part of left foot limited to breakdown of skin; M24.573 Contracture, unspecified ankle; I10 Essential (primary) hypertension; G47.33 Obstructive sleep apnea (adult) (pediatric); N18.9 Chronic kidney disease, unspecified; E66.01 Morbid (severe) obesity due to excess calories; Z68.41 Body mass index [BMI] 40.0-44.9, adult; Z79.84 Long term (current) use of oral hypoglycemic drugs; Z79.899 Other long term (current) drug therapy; Z79.82 Long term (current) use of aspirin
CPT/HCPCS: 82947; J0171; J0690; J1100; J2250; J2405; J2704; J3010; J7120

== ENCOUNTER → 2020-10-26 | Outpatient (CLI) | payer OTHER | END | disposition home or self-care (01) | LOC: LAB 09:38 → LAB SHORT 09:38 | DX: L82.1 Other seborrheic keratosis (principal) | CPT/HCPCS: 88305 ==

== ENCOUNTER → 2021-03-01 | Outpatient (CLI) | payer OTHER | LOC: LAB 10:28 → LAB SHORT 10:28 | DX: R30.0 Dysuria (principal); Z88.2 Allergy status to sulfonamides; Z88.5 Allergy status to narcotic agent | CPT/HCPCS: 87086 ==

== ENCOUNTER 2022-11-21 11:39 | Day surgery (SDC) | payer OTHER ==
[~2022-11-21] VITALS: Ht 180.3 cm; Wt 132.1 kg
[~2022-11-21 11:39] MED LIST changes: +CEFP200 PO; +HYDROCODONE-AC1 EA19 PO; +MECL25 PO
[2022-11-21] MEDS ORDERED: GEMTESA75 MG PO (12:12)
[2022-11-21] MEDS ORDERED: METFORMIN HCL500 M3 PO (12:12)
[2022-11-21] MEDS ORDERED: SEMGLEE (Y100 UNIT/2 SQ (12:12)
[2022-11-21] MEDS ORDERED: TRULICITY1.5 MG/0.1 SQ (12:12)
[2022-11-21] MEDS ORDERED: HYDCHL25 (12:13)
--- NOTE | 2022-11-21 12:21 | NUR ---
11/21/22 1221 Yamini Wilhelm 1 DROP OF TETRACAINE ADMINISTERED TO THE R EYE AT 1208, PLEDGET PLACED IN R EYE AT 1210
[2022-11-21 13:42] VITALS: BP 156/73
--- NOTE | 2022-11-21 13:53 | NUR ---
11/21/22 1353 Rivas Edwards IV OUT- NO ISSUES. WNL
== END 2022-11-21 14:03 | disposition home or self-care (01) ==
LOC: ORSCSDS 11:39
PROVIDERS: Ophthalmology
PROC: 08RJ3JZ Replacement of Right Lens with Synthetic Substitute, Percutaneous Approach (ICD-10-PCS; principal; 2022-11-21 13:00)
DX: E11.36 Type 2 diabetes mellitus with diabetic cataract (principal); H25.13 Age-related nuclear cataract, bilateral; J45.909 Unspecified asthma, uncomplicated; G47.33 Obstructive sleep apnea (adult) (pediatric); E66.01 Morbid (severe) obesity due to excess calories; Z68.41 Body mass index [BMI] 40.0-44.9, adult; Z87.891 Personal history of nicotine dependence; E78.5 Hyperlipidemia, unspecified; Z79.899 Other long term (current) drug therapy; Z79.84 Long term (current) use of oral hypoglycemic drugs; Z79.82 Long term (current) use of aspirin
CPT/HCPCS: 82947; J2001; J2250; J3010; J3301; J7040; V2632

== ENCOUNTER 2022-12-05 11:31 | Day surgery (SDC) | payer OTHER ==
[~2022-12-05] VITALS: Ht 180.3 cm; Wt 132.5 kg
[~2022-12-05 11:31] MED LIST changes: +GEMTESA75 MG PO; +HYDCHL25; +METFORMIN HCL500 M3 PO; +SEMGLEE (Y100 UNIT/2 SQ; +TRULICITY1.5 MG/0.1 SQ
--- NOTE | 2022-12-05 12:15 | NUR ---
12/05/22 1215 Brady Mcclain CALL LIGHT WITHIN REACH. TETRACAINE IN LEFT EYE AT 1158 AND PLEDGETT IN AT 1159
[2022-12-05 13:38] VITALS: BP 126/70
--- NOTE | 2022-12-05 14:06 | NUR ---
12/05/22 1406 Rivas Edwards IV REMOVED INTACT. SITE WNL.
== END 2022-12-05 13:53 | disposition home or self-care (01) ==
LOC: ORSCSDS 11:31
PROVIDERS: Ophthalmology
PROC: 08RK3JZ Replacement of Left Lens with Synthetic Substitute, Percutaneous Approach (ICD-10-PCS; principal; 2022-12-05 13:00)
DX: E11.36 Type 2 diabetes mellitus with diabetic cataract (principal); H25.12 Age-related nuclear cataract, left eye; H21.81 Floppy iris syndrome; I10 Essential (primary) hypertension; E78.5 Hyperlipidemia, unspecified; G47.33 Obstructive sleep apnea (adult) (pediatric); Z87.891 Personal history of nicotine dependence; J45.909 Unspecified asthma, uncomplicated; E66.01 Morbid (severe) obesity due to excess calories; Z68.41 Body mass index [BMI] 40.0-44.9, adult; Z79.84 Long term (current) use of oral hypoglycemic drugs; Z79.4 Long term (current) use of insulin; Z79.899 Other long term (current) drug therapy; Z79.82 Long term (current) use of aspirin
CPT/HCPCS: 82947; A9270; J2001; J2250; J2765; J3010; J3301; J7040; V2632

== ENCOUNTER 2024-07-07 22:38 | Emergency (ER) | payer OTHER ==
[~2024-07-07] VITALS: Ht 180.3 cm; Wt 127.9 kg
[2024-07-07 23:28] LABS: Source, Urine Clean Catch
[2024-07-07 23:31] LABS: Appearance, Urine Clear (Clear); Bilirubin, Urine Neg (Neg); Blood, Urine Neg (Neg); Color, Urine Yellow (P-Yellow); Glucose Qualitative, Urine 2+ (Neg); Ketones, Urine Neg (Neg); Leukocyte Esterase, Urine Neg (Neg); Nitrite, Urine Neg (Neg); Protein, Urine 2+ (Neg); Specific Gravity, Urine 1.015 (1.003-1.022); Urobilinogen, Urine NORM (Normal)
[2024-07-07 23:50] LABS: Red Blood Cells, Urine 0-2 /hpf (0-2)
[2024-07-07 23:51] LABS: Bacteria Mod /hpf; Squamous Epithelial Cells Many /hpf (Few)
[2024-07-08 00:13] LABS: BASOPHILS ABSOLUTE AUTO 0.02 K/mm3 (0.00-0.23); BASOPHILS PERCENT AUTO 0 % (0-2); EOSINOPHILS ABSOLUTE AUTO 0.19 K/mm3 (0.00-0.68); EOSINOPHILS PERCENT AUTO 2 % (0-6); Hematocrit 43.2 % (37.0-53.0); Hemoglobin 15.4 g/dL (13.5-17.5); IMMATURE GRAN ABSOLUTE AUTO 0.03 K/mm3 (0.00-0.10); IMMATURE GRAN PERCENT AUTO 0 % (0-1); LYMPHOCYTES ABSOLUTE AUTO 1.03 K/mm3 (0.84-5.20); LYMPHOCYTES PERCENT AUTO 9 % (21-46); MONOCYTES ABSOLUTE AUTO 0.87 K/mm3 (0.16-1.47); MONOCYTES PERCENT AUTO 8 % (4-13); Mean Corpuscular HGB 28.9 pg (26.0-34.0); Mean Corpuscular HGB Conc 35.6 g/dL (31.5-36.5); Mean Corpuscular Volume 81 fL (80-100); Mean Platelet Volume 10.2 fL (9.1-12.4); NEUTROPHILS ABSOLUTE AUTO 8.79 K/mm3 (1.96-9.15); NEUTROPHILS PERCENT AUTO 80 % (41-73); Platelet Count 182 K/mm3 (150-400); RDW Coefficient Variation 13.5 % (11.7-14.2); RDW Standard Deviation 39.3 fL (35.1-46.3); Red Blood Cell Count 5.32 M/mm3 (4.30-5.90); White Blood Cell Count 10.93 K/mm3 (4.00-11.30)
[2024-07-08] MEDS ORDERED: NS 1,000 ML IV SCH (00:20)
[2024-07-08 00:50] LABS: Albumin, Blood 3.9 g/dL (3.4-5.0); Albumin/Globulin Ratio 0.9 (0.8-1.8); Bun/Creatinine Ratio 26.7 (12.0-20.0); Calcium, Blood 8.7 mg/dL (8.5-10.1); Creatinine, Blood 1.01 mg/dL (0.60-1.20); Globulin, Blood 4.5 g/dL (2.2-4.0); Potassium, Blood 4.3 mmol/L (3.5-5.5); Total Protein, Blood 8.4 g/dL (6.4-8.2)
[2024-07-08 01:30] VITALS: BP 137/62
[2024-07-08] MEDS ORDERED: Cephalexin Monohydrate 500 MG Cap PO ONE (02:30)
[2024-07-08] MEDS ORDERED: CEFP200 PO (02:50)
== END 2024-07-08 02:52 | disposition home or self-care (01) ==
LOC: ER 22:38
PROVIDERS: Emergency Medicine; Physician Assistant
DX: E86.0 Dehydration (principal); N39.0 Urinary tract infection, site not specified; I10 Essential (primary) hypertension; E11.9 Type 2 diabetes mellitus without complications; G47.33 Obstructive sleep apnea (adult) (pediatric); R19.7 Diarrhea, unspecified; Z87.891 Personal history of nicotine dependence; Z79.82 Long term (current) use of aspirin; Z79.51 Long term (current) use of inhaled steroids; Z79.899 Other long term (current) drug therapy
CPT/HCPCS: 51798; 70450; 80053; 81001; 83690; 85025; 99284-25; A9270; J7030

== ENCOUNTER → 2024-07-07 | Outpatient (CLI) | payer OTHER ==
[~2024-07-07] MED LIST changes: +Oxybutynin Chlo10 MG PO; +Tessalon200 MG PO
[2024-07-07 13:15] LABS: BASOPHILS ABSOLUTE AUTO 0.01 K/mm3 (0.00-0.23); BASOPHILS PERCENT AUTO 0 % (0-2); EOSINOPHILS ABSOLUTE AUTO 0.22 K/mm3 (0.00-0.68); EOSINOPHILS PERCENT AUTO 2 % (0-6); Hematocrit 46.2 % (37.0-53.0); IMMATURE GRAN ABSOLUTE AUTO 0.03 K/mm3 (0.00-0.10); IMMATURE GRAN PERCENT AUTO 0 % (0-1); LYMPHOCYTES ABSOLUTE AUTO 1.45 K/mm3 (0.84-5.20); LYMPHOCYTES PERCENT AUTO 14 % (21-46); MONOCYTES PERCENT AUTO 5 % (4-13); Mean Corpuscular HGB 28.9 pg (26.0-34.0); Mean Corpuscular HGB Conc 34.6 g/dL (31.5-36.5); Mean Corpuscular Volume 83 fL (80-100); Mean Platelet Volume 10.5 fL (9.1-12.4); NEUTROPHILS ABSOLUTE AUTO 8.01 K/mm3 (1.96-9.15); NEUTROPHILS PERCENT AUTO 78 % (41-73); Platelet Count 200 K/mm3 (150-400); RDW Coefficient Variation 13.5 % (11.7-14.2); RDW Standard Deviation 40.8 fL (35.1-46.3); Red Blood Cell Count 5.54 M/mm3 (4.30-5.90); White Blood Cell Count 10.22 K/mm3 (4.00-11.30)
[2024-07-07 13:32] LABS: Albumin, Blood 4.2 g/dL (3.4-5.0); Albumin/Globulin Ratio 0.9 (0.8-1.8); Bilirubin, Total 0.8 mg/dL (0.1-1.0); Bun/Creatinine Ratio 20.9 (12.0-20.0); Calcium, Blood 9.7 mg/dL (8.5-10.1); Creatinine, Blood 1.53 mg/dL (0.60-1.20); Globulin, Blood 4.9 g/dL (2.2-4.0); Potassium, Blood 4.6 mmol/L (3.5-5.5); Total Protein, Blood 9.1 g/dL (6.4-8.2)
== END ==
LOC: LAB 13:09 → LAB SHORT 13:09
PROVIDERS: Physician Assistant
DX: R19.7 Diarrhea, unspecified (principal)
CPT/HCPCS: 80053; 83690; 85025

== ENCOUNTER → 2024-11-17 | Outpatient (CLI) | payer OTHER ==
[2024-11-17 18:46] LABS: Creatinine, Urine Random 82.7 mg/dL (27.00-270.00); Microalb/Creat Ratio UR, Rand 14.148 mg/g (0.000-30.000); Microalbumin, Random Urine 11.7 mg/L (0.000-20.000)
== END ==
LOC: LAB SHORT 12:00 → LAB 12:00
PROVIDERS: Nurse Practitioner Family
DX: E11.65 Type 2 diabetes mellitus with hyperglycemia (principal)
CPT/HCPCS: 82043; 82570

== ENCOUNTER 2024-12-19 16:43 | Emergency (ER) | payer OTHER ==
[~2024-12-19] VITALS: Ht 180.3 cm; Wt 127.0 kg
[2024-12-19 17:19] LABS: BASOPHILS ABSOLUTE AUTO 0.05 K/mm3 (0.00-0.23); BASOPHILS PERCENT AUTO 0 % (0-2); EOSINOPHILS ABSOLUTE AUTO 0.23 K/mm3 (0.00-0.68); EOSINOPHILS PERCENT AUTO 2 % (0-6); Hematocrit 41.7 % (37.0-53.0); Hemoglobin 14.6 g/dL (13.5-17.5); IMMATURE GRAN ABSOLUTE AUTO 0.04 K/mm3 (0.00-0.10); IMMATURE GRAN PERCENT AUTO 0 % (0-1); LYMPHOCYTES ABSOLUTE AUTO 0.71 K/mm3 (0.84-5.20); LYMPHOCYTES PERCENT AUTO 5 % (21-46); MONOCYTES ABSOLUTE AUTO 0.68 K/mm3 (0.16-1.47); MONOCYTES PERCENT AUTO 5 % (4-13); Mean Corpuscular HGB Conc 35.0 g/dL (31.5-36.5); Mean Corpuscular Volume 82 fL (80-100); NEUTROPHILS ABSOLUTE AUTO 11.49 K/mm3 (1.96-9.15); NEUTROPHILS PERCENT AUTO 87 % (41-73); NRBC ABSOLUTE 0.00 K/mm3 (0.00-0.02); NRBC Auto 0.0 /100 WBC (0.0-0.2); Platelet Count 153 K/mm3 (150-400); RDW Coefficient Variation 13.4 % (11.7-14.2); RDW Standard Deviation 39.7 fL (35.1-46.3)
[2024-12-19 17:38] LABS: Alanine Aminotransfer (ALT/SGP 29 U/L (12-78); Albumin, Blood 3.9 g/dL (3.4-5.0); Albumin/Globulin Ratio 0.9 (0.8-1.8); Anion Gap 10 mmol/L (3-11); Aspartate Aminotrans (AST/SGOT 19 U/L (12-37); Bilirubin, Total 0.7 mg/dL (0.1-1.0); Blood Urea Nitrogen 20 mg/dL (8-24); CO2, Blood 23 mmol/L (21-32); Calcium, Blood 9.3 mg/dL (8.5-10.1); Chloride, Blood 101 mmol/L (98-108); Creatinine, Blood 0.88 mg/dL (0.60-1.20); Globulin, Blood 4.3 g/dL (2.2-4.0); Glucose, Blood 271 mg/dL (70-99); Potassium, Blood 4.3 mmol/L (3.5-5.5); Sodium, Blood 130 mmol/L (136-145); Total Protein, Blood 8.2 g/dL (6.4-8.2)
[2024-12-19 17:55] LABS: Source, Urine Clean Catch
[2024-12-19 17:58] LABS: Bilirubin, Urine Neg (Neg); Color, Urine Yellow (P-Yellow); Glucose Qualitative, Urine 4+ (Neg); Ketones, Urine 1+ (Neg); Leukocyte Esterase, Urine 1+ (Neg); Protein, Urine 2+ (Neg); Specific Gravity, Urine 1.020 (1.003-1.022); Urobilinogen, Urine NORM (Normal)
[2024-12-19 18:21] LABS: CORONAVIRUS COVID-19 AG Negative (NEGATIVE)
[2024-12-19] MEDS ORDERED: Ketorolac Tromethamine 30mg Vial IV ONE (18:30)
[2024-12-19 18:45] VITALS: BP 153/79
[2024-12-19] MEDS ORDERED: CefTRIAXone Sodium 1,000 MG in NS 50 ML IV ONE (18:55)
[2024-12-19] MEDS ORDERED: CEPH500 PO (19:07)
== END 2024-12-19 19:50 | disposition home or self-care (01) ==
LOC: ER 16:43
PROVIDERS: Emergency Medicine
DX: N39.0 Urinary tract infection, site not specified (principal); I10 Essential (primary) hypertension; E11.9 Type 2 diabetes mellitus without complications; G47.33 Obstructive sleep apnea (adult) (pediatric); Z87.891 Personal history of nicotine dependence; Z79.4 Long term (current) use of insulin; Z79.84 Long term (current) use of oral hypoglycemic drugs; Z88.2 Allergy status to sulfonamides; Z88.5 Allergy status to narcotic agent
CPT/HCPCS: 71045; 80053; 81001; 84484; 85025; 87086; 87428-QW; 93005; 93010; 96374; 96375; 99285-25; J0696; J1885

== ENCOUNTER 2025-02-15 02:59 | Emergency (ER) | payer OTHER ==
[~2025-02-15] VITALS: Ht 180.3 cm; Wt 131.5 kg
[2025-02-15] MEDS ORDERED: Ondansetron HCl 2 MG / ML 2ML Vial IV ONE (03:35)
[2025-02-15 03:46] LABS: BASOPHILS ABSOLUTE AUTO 0.02 K/mm3 (0.00-0.23); BASOPHILS PERCENT AUTO 0 % (0-2); EOSINOPHILS ABSOLUTE AUTO 0.32 K/mm3 (0.00-0.68); EOSINOPHILS PERCENT AUTO 2 % (0-6); Hematocrit 44.8 % (37.0-53.0); Hemoglobin 15.5 g/dL (13.5-17.5); IMMATURE GRAN ABSOLUTE AUTO 0.04 K/mm3 (0.00-0.10); IMMATURE GRAN PERCENT AUTO 0 % (0-1); LYMPHOCYTES ABSOLUTE AUTO 1.43 K/mm3 (0.84-5.20); LYMPHOCYTES PERCENT AUTO 10 % (21-46); MONOCYTES ABSOLUTE AUTO 1.09 K/mm3 (0.16-1.47); MONOCYTES PERCENT AUTO 8 % (4-13); Mean Corpuscular HGB Conc 34.6 g/dL (31.5-36.5); Mean Corpuscular Volume 83 fL (80-100); NEUTROPHILS ABSOLUTE AUTO 10.94 K/mm3 (1.96-9.15); NEUTROPHILS PERCENT AUTO 79 % (41-73); NRBC ABSOLUTE 0.00 K/mm3 (0.00-0.02); NRBC Auto 0.0 /100 WBC (0.0-0.2); Platelet Count 185 K/mm3 (150-400); RDW Coefficient Variation 13.7 % (11.7-14.2); RDW Standard Deviation 41.7 fL (35.1-46.3)
[2025-02-15 03:59] LABS: Alanine Aminotransfer (ALT/SGP 36.0 U/L (12-78); Albumin, Blood 4.0 g/dL (3.4-5.0); Albumin/Globulin Ratio 0.9 (0.8-1.8); Anion Gap 10.0 mmol/L (3-11); Aspartate Aminotrans (AST/SGOT 20.0 U/L (12-37); Bilirubin, Total 0.8 mg/dL (0.1-1.0); Blood Urea Nitrogen 22.0 mg/dL (8-24); CO2, Blood 19.0 mmol/L (21-32); Calcium, Blood 9.1 mg/dL (8.5-10.1); Chloride, Blood 109.0 mmol/L (98-108); Creatinine, Blood 0.8 mg/dL (0.60-1.20); Globulin, Blood 4.4 g/dL (2.2-4.0); Glucose, Blood 244.0 mg/dL (70-99); Magnesium, Blood 1.7 mg/dL (1.6-2.4); Potassium, Blood 4.6 mmol/L (3.5-5.5); Sodium, Blood 133.0 mmol/L (136-145); Total Protein, Blood 8.4 g/dL (6.4-8.2)
[2025-02-15 05:00] VITALS: BP 158/71
[2025-02-15 05:00] LABS: Source, Urine Clean Catch
[2025-02-15 05:02] LABS: Bilirubin, Urine Neg (Neg); Glucose Qualitative, Urine 3+ (Neg); Ketones, Urine Neg (Neg); Leukocyte Esterase, Urine Neg (Neg); Protein, Urine 1+ (Neg); Specific Gravity, Urine 1.020 (1.003-1.022); Urobilinogen, Urine NORM (Normal)
[2025-02-15 05:05] LABS: Color, Urine Yellow (P-Yellow)
== END 2025-02-15 05:40 | disposition home or self-care (01) ==
LOC: ER 02:59
PROVIDERS: Student in an Organized Health Care Education/Training Program
DX: R11.2 Nausea with vomiting, unspecified (principal); E86.0 Dehydration; R53.1 Weakness; R19.7 Diarrhea, unspecified; E11.9 Type 2 diabetes mellitus without complications; G47.30 Sleep apnea, unspecified; I10 Essential (primary) hypertension; Z87.891 Personal history of nicotine dependence; Z79.51 Long term (current) use of inhaled steroids; Z79.84 Long term (current) use of oral hypoglycemic drugs; Z79.4 Long term (current) use of insulin; Z79.899 Other long term (current) drug therapy; Z79.82 Long term (current) use of aspirin; Z88.2 Allergy status to sulfonamides; Z88.5 Allergy status to narcotic agent
CPT/HCPCS: 80053; 83690; 83735; 85025; 93005; 93010; 96361; 96374; 99284-25; J2405; J7120

== ENCOUNTER → 2025-03-19 | Outpatient (CLI) | payer OTHER | LOC: LAB SHORT 17:08 → LAB 17:08 | DX: R97.20 Elevated prostate specific antigen [PSA] (principal) | CPT/HCPCS: 87070 ==

== ENCOUNTER → 2025-04-03 | Outpatient (CLI) | payer OTHER | LOC: LAB 12:12 → LAB SHORT 12:12 | DX: R30.0 Dysuria (principal) | CPT/HCPCS: 87086; 87106 ==